=== PATIENT | male | born 1965 | race Caucasian/White ===

== ENCOUNTER 2017-12-29 15:20 | Emergency (ER) | payer OTHER ==
[2017-12-29] MEDS ORDERED: FLUO-177 PO (15:31)
[2017-12-29] MEDS ORDERED: LISI20TA29 PO (15:31)
[2017-12-29] MEDS ORDERED: LISI-374 PO (15:35)
[2017-12-29] MEDS ORDERED: METO25TA93 PO (15:35)
--- NOTE | 2017-12-29 15:35 | ER Report ---
History and Physical Time Seen By MD: 15:34 Hx. of Stated Complaint: PT REPORTS DOG BITE R ANKLE ON THE , UNSURE IF DOG WAS VACCINATED FOR RABIES HPI/ROS CHIEF COMPLAINT: dog bite HISTORY OF PRESENT ILLNESS: Pt was at a persons house doing a work estimate on the and the residents dog bit him on the leg. The resident did not have his dog up to date on immunizations. Pt cleaned off the wound and went to [facility] to file a dog bite. THe dog has been home quarantined for 10 days. Today is day 10. Pt has called the [employer] department who states that they have no one to go check on the dog but the redevelopment specialist told them the dog is well. Pt was upset and was referred to the emergency department for further care. pt has had no numbness or redness of the leg. Pt feels well. REVIEW OF SYSTEMS: Gen: no fevers or chills Respiratory: No cough, no dyspnea. Cardiovascular: No chest pain, no palpitations. Gastrointestinal: No vomiting, no abdominal pain. Musculoskeletal: No leg pain Skin: no erthema Neuro: no numbness Allergies: Coded Allergies: No Known Drug Allergies (Unverified , 12/29/17) Home Meds Reported Medications Lisinopril (LISINOPRIL) 40 Mg Tablet, 40 MG PO QDAY, TAB 12/29/17 Metoprolol Tartrate (METOPROLOL TARTRATE) 25 Mg Tablet, 1 TAB PO BID, TAB 12/29/17 Fluoxetine Hcl (FLUOXETINE HCL) 20 Mg Capsule, 20 MG PO QDAY, CAPSULE 12/29/17 Discontinued Reported Medications Lisinopril (LISINOPRIL) 20 Mg Tablet, 20 MG PO QDAY, TAB 12/29/17 Past Medical/Surgical History Pmhx, ocd, htn Pshx: non contrib Reviewed Nurses Notes: Yes Hx Smoking: No Hx Alcohol Use: Yes Constitutional Vital Sign - Last 24 Hours 12/29/17 15:27 Temp 98.3 Pulse 74 Resp 16 B/P (MAP) 138/85 Pulse Ox 94 O2 Delivery Room Air Physical Exam General Appearance: The patient is alert, has no immediate need for airway protection and no signs of toxicity. Eyes: Pupils equal and round no pallor or injection, EOMI ENT: no pharyngeal erythema or exudates, Mucous membranes are moist Respiratory: There are no retractions, lungs are clear to auscultation. Cardiovascular: Regular rate and rhythm. pulses are equal and symmetrical Gastrointestinal: Abdomen is soft and non tender, no masses, bowel sounds normal Neurological: Cranial nerves II-XII grossly intact, no sensory or motor loss Skin: Warm and dry, no rashes, + puncture wound is healed without erythema or tenderness Musculoskeletal: Extremities are nontender, nonswollen and have full range of motion. DIFFERENTIAL DIAGNOSIS: After history and physical exam differential diagnosis was considered for dog bite Medical Decision Making ED Course/Re-evaluation ED Course Dog bite redevelopment specialist was Jesus khan in [place]. Spoke with [facility] dispatch, [phone], Spoke with Deputy hyman who states that they sent a patrol care there this afternoon but no one was home. They have since called the redevelopment specialist and the redevelopment specialist is home and invited them out to see the dog but they do not have any officer free to go at this time. 12/29/2017 4:11:15 pm Spoke to pt at length. Pt is concerned that the redevelopment specialist could be lying. I offered to start the rabies vaccination process or the patient can call the dog redevelopment specialist himself and see if they are willing to have him check the dog for his own piece of mind. Pt prefers not to have the shot series. He does understand that rabies is deadly. Statse he is going to call his office now and obtain the residents phone numbner and drive out to see the dog. Decision to Disposition Date: Dec 29, 2017 Decision to Disposition Time: 16:13 Depart Departure Latest Vital Signs Vital Signs Date Time Temp Pulse Resp B/P (MAP) Pulse Ox O2 Delivery O2 Flow Rate FiO2 12/29/17 15:27 98.3 74 16 138/85 94 Room Air Impression: Primary Impression: Dog bite Condition: Improved Disposition: HOME OR SELF-CARE Patient Instructions: Animal Bite (GEN) Additional Instructions: I spoke with Alyce Hyman who spoke with the redevelopment specialist but no one went out and saw the dog. Recommend you try to see the dog. If you are unable to see the dog or if the dog is recommend you come back for rabies shots. Problem Qualifiers Primary Impression: Dog bite Encounter type: initial encounter Qualified Codes: W54.0XXA - Bitten by dog , initial encounter YOVANI PHILLIPS DO Dec 29, 2017 15:35
[2017-12-29 16:10] VITALS: BP 129/89
== END 2017-12-29 16:11 | disposition home or self-care (01) ==
LOC: ER 15:35
DX: S91.051A Open bite, right ankle, initial encounter (principal); W54.0XXA Bitten by dog, initial encounter
CPT/HCPCS: 99281